=== PATIENT | female | born 1960 | race Two or more races ===

== ENCOUNTER 2018-11-06 10:24 | Day surgery (SDC) | payer BC ==
[2018-11-06] MEDS ORDERED: MIDAZOLAM 1 MG/ML 2 ML INJ ×2 (11:44)
[2018-11-06] MEDS ORDERED: FENTAnyl 50 MCG/ML VIAL (11:44)
== END 2018-11-06 15:04 | disposition home or self-care (01) ==
LOC: GIL 10:24
DX: Z12.11 Encounter for screening for malignant neoplasm of colon (principal); K63.89 Other specified diseases of intestine; K59.00 Constipation, unspecified
CPT/HCPCS: 45378